=== PATIENT | male | born 1965 | race Caucasian/White ===

== ENCOUNTER → 2016-12-30 | Outpatient (CLI) | payer MEDICARE, OTHER | LOC: US 12-29 10:30 | DX: R10.814 Left lower quadrant abdominal tenderness (principal); N50.89 Other specified disorders of the male genital organs; R06.02 Shortness of breath; M54.5 Low back pain; M54.2 Cervicalgia; M54.6 Pain in thoracic spine; Z95.0 Presence of cardiac pacemaker; Z90.49 Acquired absence of other specified parts of digestive tract | CPT/HCPCS: 71020; 72040; 72072; 72100; 76700; 76870 ==

== ENCOUNTER 2020-11-11 16:04 | Emergency (ER) | payer MEDICARE, OTHER ==
[~2020-11-11 16:04] MED LIST: CEFUROXIME500 MG PO; CYCLOBENZAPRINE10 MG PO; IBUPROFEN600 MG PO; MEDROL DOSEPAK 24 MG PO; NORFLEX 100 MG100 MG PO; PERCOCET 5/325 T1 EA PO; PREDNISONE 50 M50 MG PO; Voltaren Gel 1% TOP
[2020-11-11 20:07] LABS: HEMOGLOBIN 14.7 gm/dl (14.0-17.5); RED BLOOD COUNT 4.6 M/UL (4.20-5.50); WHITE BLOOD COUNT 6.8 K/UL (4.5-11.0)
[2020-11-11 20:26] LABS: BUN/CREATININE RATIO 7 (0-10)
[2020-11-11] MEDS ORDERED: AUGMENTIN 875-1 EACH PO (22:15)
[2020-11-11] MEDS ORDERED: CYCLOBENZAPRINE5 MG PO (22:15)
[2020-11-11] MEDS ORDERED: FLAGYL500 MG PO (22:15)
[2020-11-11] MEDS ORDERED: MOBIC15 MG PO (22:15)
[2020-12-23] MEDS ORDERED: DEPAKOTE250 MG PO (08:20)
[2020-12-23] MEDS ORDERED: SEROQUEL200 MG PO (08:21)
[2020-12-23] MEDS ORDERED: ZOLOFT25 MG PO (08:21)
[2020-12-23] MEDS ORDERED: TOPROL XL25 MG PO (08:22)
== END 2020-11-11 22:48 | disposition home or self-care (01) ==
LOC: ER1 16:04
PROVIDERS: Physician Assistant
DX: K52.9 Noninfective gastroenteritis and colitis, unspecified (principal); J44.9 Chronic obstructive pulmonary disease, unspecified; M54.5 Low back pain; F31.9 Bipolar disorder, unspecified; F17.210 Nicotine dependence, cigarettes, uncomplicated; Z95.0 Presence of cardiac pacemaker; Z90.89 Acquired absence of other organs; Z88.5 Allergy status to narcotic agent
CPT/HCPCS: 36415; 71046; 80053; 81001; 83690; 85025; 96374; 99284; J2405; J7030; Q9967

== ENCOUNTER → 2020-12-23 | Day surgery (SDC) | payer MEDICARE, OTHER ==
[~2020-12-23] MED LIST changes: +ACID-PEP20 MG PO; +AUGMENTIN 875-1 EACH PO; +CYCLOBENZAPRINE5 MG PO; +DEPAKOTE250 MG PO; +FLAGYL500 MG PO; +MAALOX ADVANCE355 ML PO; +MOBIC15 MG PO; +SEROQUEL200 MG PO; +TOPROL XL25 MG PO; +ZOLOFT25 MG PO
== END | disposition home or self-care (01) ==
LOC: OR 07:21
DX: Z12.11 Encounter for screening for malignant neoplasm of colon (principal); K29.51 Unspecified chronic gastritis with bleeding; K57.30 Diverticulosis of large intestine without perforation or abscess without bleeding; K64.0 First degree hemorrhoids; K64.4 Residual hemorrhoidal skin tags; K60.2 Anal fissure, unspecified; J44.9 Chronic obstructive pulmonary disease, unspecified; I51.9 Heart disease, unspecified; I49.5 Sick sinus syndrome; K21.9 Gastro-esophageal reflux disease without esophagitis; F17.210 Nicotine dependence, cigarettes, uncomplicated; Z95.0 Presence of cardiac pacemaker; Z88.5 Allergy status to narcotic agent; Z88.6 Allergy status to analgesic agent; Z79.899 Other long term (current) drug therapy
CPT/HCPCS: 43239; G0121; J2704; J7040

== ENCOUNTER 2021-01-18 07:51 | Emergency (ER) | payer MEDICARE, OTHER ==
[~2021-01-18 07:51] MED LIST changes: -ACID-PEP20 MG PO; -MAALOX ADVANCE355 ML PO
[2021-01-18 08:39] LABS: HEMOGLOBIN 15.8 gm/dl (14.0-17.5); RED BLOOD COUNT 5.01 M/UL (4.20-5.50); WHITE BLOOD COUNT 13.8 K/UL (4.5-11.0)
[2021-01-18 09:28] LABS: BUN/CREATININE RATIO 6 (0-10)
[2021-01-18] MEDS ORDERED: MAALOX ADVANCE355 ML PO (12:38)
[2021-01-18] MEDS ORDERED: ACID-PEP20 MG PO (12:38)
== END 2021-01-18 12:45 | disposition home or self-care (01) ==
LOC: ER1 07:51
PROVIDERS: Student in an Organized Health Care Education/Training Program
DX: K20.90 Esophagitis, unspecified without bleeding (principal); J44.9 Chronic obstructive pulmonary disease, unspecified; Z90.49 Acquired absence of other specified parts of digestive tract; Z20.822 Contact with and (suspected) exposure to COVID-19; Z90.89 Acquired absence of other organs; Z88.5 Allergy status to narcotic agent; Z79.899 Other long term (current) drug therapy; F17.210 Nicotine dependence, cigarettes, uncomplicated; Z88.8 Allergy status to other drugs, medicaments and biological substances
CPT/HCPCS: 0240U; 71046; 80053; 82550; 82553; 82803; 83690; 83874; 83880; 84484; 85025; 85379; 93005; 96374; 96375; 99285; J1170; J2405; J2765

== ENCOUNTER 2021-05-08 12:17 | Emergency (ER) | payer MEDICARE, OTHER ==
[~2021-05-08 12:17] MED LIST changes: +ACID-PEP20 MG PO; +MAALOX ADVANCE355 ML PO
[2021-05-08 13:07] LABS: HEMOGLOBIN 16.4 gm/dl (14.0-17.5); RED BLOOD COUNT 5.19 M/UL (4.20-5.50); WHITE BLOOD COUNT 6.6 K/UL (4.5-11.0)
[2021-05-08 13:27] LABS: BUN/CREATININE RATIO 5 (0-10)
[2021-05-08] MEDS ORDERED: ZOFRAN ODT 4 MG4 MG PO (15:58)
== END 2021-05-08 16:04 | disposition home or self-care (01) ==
LOC: ER1 12:17
PROVIDERS: Physician Assistant Medical
DX: B34.9 Viral infection, unspecified (principal); J44.9 Chronic obstructive pulmonary disease, unspecified; F17.210 Nicotine dependence, cigarettes, uncomplicated; Z20.822 Contact with and (suspected) exposure to COVID-19; Z88.5 Allergy status to narcotic agent
CPT/HCPCS: 71045; 80053; 81001; 82550; 82553; 83690; 83735; 83874; 84100; 84484; 85025; 93005; 96374; 99284; J2405; U0002

== ENCOUNTER → 2021-07-17 | Outpatient (CLI) | payer MEDICARE, OTHER ==
[~2021-07-17] MED LIST changes: +ZOFRAN ODT 4 MG4 MG PO
== END ==
LOC: CATH 09:35
DX: R55 Syncope and collapse (principal)

== ENCOUNTER 2021-09-27 11:27 | Emergency (ER) | payer MEDICARE, OTHER ==
[~2021-09-27 11:27] MED LIST changes: -ZOLOFT25 MG PO; +ZOLOFT50 MG PO
[2021-09-28] MEDS ORDERED: OMEGA-3 ACID ETH1 GM PO (11:58)
[2021-09-28] MEDS ORDERED: PROAIR HFA8.5 GM INH (11:58)
[2021-09-28] MEDS ORDERED: SYMBICORT 160-1 INHA INH (11:58)
[2021-09-28] MEDS ORDERED: HYDROXYZINE HCL25 MG PO (12:05)
== END 2021-09-28 13:12 | disposition other institution (70) ==
LOC: ER1 11:27
DX: S60.221A Contusion of right hand, initial encounter (principal); S20.211A Contusion of right front wall of thorax, initial encounter; S40.812A Abrasion of left upper arm, initial encounter; S10.91XA Abrasion of unspecified part of neck, initial encounter; R45.851 Suicidal ideations; I51.9 Heart disease, unspecified; J44.9 Chronic obstructive pulmonary disease, unspecified; Y04.8XXA Assault by other bodily force, initial encounter; Y92.009 Unspecified place in unspecified non-institutional (private) residence as the place of occurrence of the external cause
CPT/HCPCS: 71045; 73130; 93005; 99284

== ENCOUNTER → 2021-12-30 | Outpatient (CLI) | payer MEDICARE, OTHER ==
[~2021-12-30] MED LIST changes: +HYDROXYZINE HCL25 MG PO; +OMEGA-3 ACID ETH1 GM PO; +PROAIR HFA8.5 GM INH; +SYMBICORT 160-1 INHA INH
== END ==
LOC: KOH-I 12-29 14:00
DX: F17.210 Nicotine dependence, cigarettes, uncomplicated (principal); R91.1 Solitary pulmonary nodule
CPT/HCPCS: 71271

== ENCOUNTER → 2022-04-12 | Outpatient (CLI) | payer MEDICARE, OTHER | LOC: RAD 13:50 | DX: M79.672 Pain in left foot (principal); M19.071 Primary osteoarthritis, right ankle and foot | CPT/HCPCS: 73630 ==

== ENCOUNTER 2022-04-19 15:44 | Emergency (ER) | payer MEDICARE, OTHER | END 2022-04-19 17:50 | disposition home or self-care (01) | LOC: ER1 15:44 | DX: S00.83XA Contusion of other part of head, initial encounter (principal); S20.212A Contusion of left front wall of thorax, initial encounter; S50.811A Abrasion of right forearm, initial encounter; F17.200 Nicotine dependence, unspecified, uncomplicated; J44.9 Chronic obstructive pulmonary disease, unspecified; J45.909 Unspecified asthma, uncomplicated; I51.9 Heart disease, unspecified; Y04.0XXA Assault by unarmed brawl or fight, initial encounter; Y92.009 Unspecified place in unspecified non-institutional (private) residence as the place of occurrence of the external cause | CPT/HCPCS: 70450; 70486; 71046; 99284 ==